=== PATIENT | male | born 1970 | race Hispanic/Latino ===

== ENCOUNTER 2016-07-26 01:39 | Emergency (ER) | payer OTHER ==
[~2016-07-26] VITALS: Ht 162.6 cm; Wt 100.0 kg
[~2016-07-26 01:39] MED LIST: CHOL100043 PO; IBUP800T28 PO; LISI-571 PO; METF500T4 PO; OMEP20CA11 PO; VALC TOP
[2016-07-26 01:40] VITALS: BP 185/121; PULSE 128; RESP 20; O2SAT 98
[2016-07-26 02:00] LABS: BASOPHILS % (AUTO) 0.4 % (0-3); EOSINOPHILS % (AUTO) 1.3 % (0-5); MONOCYTES % (AUTO) 8.2 % (4-12); Mean Corpuscular Hemoglobin 29.2 pg (27.0-35.0); Mean Corpuscular Volume 80.8 fL (81-100); NEUTROPHILS % (AUTO) 60.2 % (40-74); Platelet Count 309 bil/L (150-400)
[2016-07-26 02:21] VITALS: BP 172/117; PULSE 120; RESP 17; O2SAT 96
[2016-07-26 02:28] LABS: TROPONIN T 0.01 ug/L (0.0-0.011)
[2016-07-26 02:44] LABS: Magnesium 1.6 mg/dL (1.6-2.6)
--- NOTE | 2016-07-26 03:05 | ED.REPORT ---
HPI-General Illness Date of Service Jul 26, 2016 ED Provider: Aaron Boss MD History of Present Illness: Luis Tijerina is a 45 year old man with a PMH of DM2, HTN, and anxiety who presents with a 1 day history of elevated blood pressure and palpitations. He states that he has been under a great deal of stress recently and this has precipitated headaches, he underwent a circumcision last year and had some left over Vicodin from that procedure which he took this evening before taking his usual HS Citalopram. He states that shorlty after taking these medications he began to feel unwell, he measured his blood pressure and found it to be in excess of 180/120 which prompted him to present to the ED. He denies chest pain, SOB, MANUEL, orthopnea, diaphoresis, pain with deep breath, or acute anxiety. Nursing Notes Stated Complaint: HIGH BLOOD PRESSURE Chief Complaint: General Complaint Nursing Notes Reviewed: Yes Allergies: Coded Allergies: niacin (Verified Allergy, Severe, RASH, 12/25/13) Sulfa (Sulfonamide Antibiotics) (Verified Allergy, Unknown, hives, ) Scheduled Betamethasone Greta (Betamethasone Valerate) 60 Applic/15 Gm Cream 60 APPLIC TOP TID Cholecalciferol (Vitamin D3) (Vitamin D) 1,000 Unit Tablet 1,000 UNIT PO DAILY Lisinopril (Lisinopril) 5 Mg Tablet 5 MG PO DAILY Metformin (Metformin) 500 Mg Tablet 500 MG PO BID Omeprazole (Omeprazole) 20 Mg Capsule.dr 20 MG PO DAILY Scheduled PRN Ibuprofen (Ibuprofen) 800 Mg Tablet 800 MG PO Q8H PRN PRN For Pain General Time Seen by MD: 02:00 Chief Complaint Not feeling well Hx Obtained From: Patient Onset Occurred: 1 - 4 hours ago Symptom Duration: Since onset Severity: Current: No pain currently Severity: Maximum: No pain Recent Healthcare: No recent doctor visit Similar Sx Previous: No Past Medical History Smoking History Current Some Day Smoker Review of Systems Full Review of Systems Constitutional: Reports: Weakness - generalized Neurologic: Reports: Shaking Complete sys rev & neg: except as marked. Physical Exam Gen: A/O x3 pleasant anxious male in mild acute distress Neck: supple, full ROM, no lymphadenopathy HEENT: PERRL, EOMI, mucous membranes moist CV: Tachycardia with rate approx 120, regular rhythm, no murmurs rubs or gallops Resp: Lungs CTA BL, no wheezing rales or rhonchi Abdomen: Soft, non tender, no organomegally Extr: No cyanosis, clubbing or edema Neuro: CN 2-12 grossly intact, no focal neurologic deficit Vital Signs Vital Signs Date Time Temp Pulse Resp B/P Pulse Ox O2 Delivery O2 Flow Rate FiO2 07/26/16 03:37 91 21 163/108 95 Room Air 07/26/16 02:21 120 17 172/117 96 Room Air 07/26/16 01:40 36.7 128 20 185/121 98 Room Air Initial VS: Reviewed Interpretation & Diagnostics Lab Results Interpretation Result Diagram: 07/26/16 0153 07/26/16 0153 Test 07/26/16 01:53 White Blood Count 10.6th/mm3 (3.8-10.1) Red Blood Count 5.90mil/mm3 (4.40-5.80) Hemoglobin 17.2g/dL (13.8-17.2) Hematocrit 47.7% (41.0-50.0) Mean Corpuscular Volume 80.8fL (81-100) Mean Corpuscular Hemoglobin 29.2pg (27.0-35.0) Mean Corpuscular Hemoglobin Concent 36.1% (32.0-37.0) Red Cell Distribution Width 13.1% (12.3-15.4) Platelet Count 309bil/L (150-400) Neutrophils (%) (Auto) 60.2% (40-74) Lymphocytes (%) (Auto) 29.5% (14-46) Monocytes (%) (Auto) 8.2% (4-12) Eosinophils (%) (Auto) 1.3% (0-5) Basophils (%) (Auto) 0.4% (0-3) Sodium Level 138mEq/L (134-144) Potassium Level 3.6mEq/L (3.5-5.2) Chloride Level 98mEq/L (97-108) Carbon Dioxide Level 21mmol/L (18-29) Blood Urea Nitrogen 11mg/dL (6-24) Creatinine 0.70mg/dL (0.76-1.27) Estimat Glomerular Filtration Rate 130mL/min (>59) Glucose Level 245mg/dL (60-99) Calcium Level 9.2mg/dL (8.5-10.1) Magnesium Level 1.6mg/dL (1.6-2.6) Total Bilirubin 0.3mg/dL (0.0-1.2) Aspartate Amino Transf (AST/SGOT) 20U/L (0-50) Alanine Aminotransferase (ALT/SGPT) 40U/L (0-44) Alkaline Phosphatase 95U/L (25-150) Troponin T 0.010ug/L (0.0-0.011) Total Protein 7.2g/dL (6.4-8.4) Albumin 4.5g/dL (3.4-5.0) Re-Eval/Medical Decision Med Decision/Clinical Course Patient with reassuring laboratory, ECG, and imaging. He states that he feels much better following administration of Metoprolol and Clonidine. He states that he felt comfortable to go home. 45-year-old with a history of hypertension on advancing meds, and a prior history of anxiety and panic disorder. He presents tonight with high blood pressure and some vague feelings of unwellness, but without any evidence of hypertensive urgency or other end organ issue. His blood pressure measured manually is consistently lower than the machine pressures recorded, and when it is reading 120 diastolic, I consistently recorded 105 mm. After metoprolol and clonidine, he is comfortable, much improved, and stable for discharge home. Counseled Regarding: Diagnosis, Lab results, Need for follow-up, When/why to return to ED Discharge & Departure Shift Change Sign-Out Response to Therapy: Improved Primary Impression: HTN (hypertension) Hypertension type: essential hypertension Hypertension goal: unspecified goal Qualified Code: I10 - Essential (primary) hypertension Additional Impressions: Anxiety Sinus tachycardia Disposition: Home Discharge Condition All VS Reviewed: Yes Condition: Stable Patient Instructions: Chronic Hypertension (ED) Additional Instructions: Based upon our laboratory and clinical examination there does not appear to be anything greatly concerning going on. Your blood pressure and heart rate are both high, this is most likely due to the stress that you say you are currently experiencing. 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 If you begin to experience chest pain, shortness or breath particularly if this occurs with minimal exertion, pain radiating from your chest to your jaw, sweating, difficulty speaking, or changes in your vision or sensation please present to the ED for further evaluation. Referrals: Nona Hector PA-C (PCP) Attending Statement As attending of record for this patient, I conducted an independent history and physical exam, and concur with the resident documentation as above, and as amended. copies to: Nona Hector PA-C, David E DO Jul 26, 2016 02:23 Aaron Boss MD Jul 26, 2016 07:50
[2016-07-26 03:37] VITALS: BP 163/108; PULSE 91; RESP 21; O2SAT 95
--- NOTE | 2016-07-26 09:20 | DRSVH ---
PROCEDURE: X-RAY CHEST ONE VIEW, PORTABLE ([id number]) INDICATIONS: hypertensive/tachycardia TECHNIQUE: One view of the chest was acquired. COMPARISON: [facility], CR, CHEST 2VW, 07/25/2010, 17:33. FINDINGS: Surgical changes and devices: None. Lungs and pleura: No pleural effusions or pneumothorax. Lungs are clear. Mediastinum: Mediastinal contours appear normal. Heart size is normal. Bones and chest wall: No suspicious bony lesions. Overlying soft tissues appear unremarkable. IMPRESSION: No acute cardiopulmonary disease. Dictated by: Steve Brady [facility] Interpreted: Daisy Velasquez MD on 07/26/2016 at 9:19 Transcribed by: DELFINA on 07/26/2016 at 9:19 Approved by: Daisy Velasquez MD, PhD on 07/26/2016 at 17:00
== END 2016-07-26 03:37 | disposition home or self-care (01) ==
LOC: SED 01:39
DX: I10 Essential (primary) hypertension (principal); F41.9 Anxiety disorder, unspecified; R00.0 Tachycardia, unspecified; F17.200 Nicotine dependence, unspecified, uncomplicated; Z79.84 Long term (current) use of oral hypoglycemic drugs; Z88.2 Allergy status to sulfonamides; Z88.8 Allergy status to other drugs, medicaments and biological substances

== ENCOUNTER 2016-08-06 02:55 | Emergency (ER) | payer OTHER ==
[2016-08-06 03:10] VITALS: BP 148/100; PULSE 83; RESP 16; O2SAT 97
--- NOTE | 2016-08-06 03:15 | ED.REPORT ---
HPI-Stroke / CVA Aug 06, 2016 ED Provider: Kwadwo Angulo MD Patient is a 45 year old male with a history of Childress's palsy, diabetes mellitus , and hypertension who presents to the ED after he developed generalized weakness and dizziness just prior to arrival, with last known normal at midnight tonight. The patient states that he awoke from sleep to use the bathroom and became extremely dizzy. He tried to walk down the hallway but had to use the wall to keep himself upright. The patient does not think that he experienced actual weakness in his legs or but was just was unsteady on his feet. The patient then vomited 4x. His son states that when they encountered him he was having trouble finishing sentences. 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 Patient states that he also developed a headache between 12:30am and 1am this morning. The patient took Vicodin and Ibuprofen prior to sleep, improving his symptoms. However he now has a headache at the back of his head, which he describes as a pressure. He reports difficulty with his ears for several months, experiencing intermittent pain and abnormal pressures. Patient admits to seeing black spots in his vision , which he describes as "floaters". He denies diplopia or vision loss. His last known normal time was 3 hours and 15 minutes prior to arrival. Nursing Notes Stated Complaint: DIZZINESS/ VOMITING Chief Complaint: Stroke Symptoms Nursing Notes Reviewed: Yes Allergies: Coded Allergies: niacin (Verified Allergy, Severe, RASH, 12/25/13) Sulfa (Sulfonamide Antibiotics) (Verified Allergy, Unknown, hives, ) Scheduled Betamethasone Greta (Betamethasone Valerate) 60 Applic/15 Gm Cream 60 APPLIC TOP TID (Reported) Cholecalciferol (Vitamin D3) (Vitamin D) 1,000 Unit Tablet 1,000 UNIT PO DAILY ( Reported) Lisinopril (Lisinopril) 5 Mg Tablet 5 MG PO DAILY (Reported) Meclizine (Bonine) 25 Mg Tab.chew 25 MG PO BID Metformin (Metformin) 500 Mg Tablet 500 MG PO BID (Reported) Omeprazole (Omeprazole) 20 Mg Capsule.dr 20 MG PO DAILY (Reported) Scheduled PRN Ibuprofen (Ibuprofen) 800 Mg Tablet 800 MG PO Q8H PRN PRN For Pain (Reported) Meclizine (Bonine) 25 Mg Tab.chew 25 MG PO BID PRN PRN For Dizziness General Time Seen by Provider: 03:17 Chief Complaint Weakness, Dizziness Hx Obtained From: Patient Arrived By: Ambulance, Walk-in Time last known well 12am Sudden in Onset?: No Symptom Duration: Since onset Progression Since Onset: Gradually improving Location: : Head Quality: Painful Severity: Current: Moderate Severity: Maximum: Severe Context Related History: Reports: Childress's palsy Recent Healthcare: No recent doctor visit, No recent hospitalization Similar Sx Previous: No Risk Factors NIH Stroke Scale Level of Consciousness: Alert and responsive (0) Ask Month & Age: Both questions right (0) Open/Close Eyes/Hand Screen Stretcher: Performs both tasks (0) Horizontal EO Movements: None (0) Visual Blanco: No visual loss (0) Facial Palsy: Normal symmetry (0) (no new symptoms) Right Arm Motor Drift (10s): No drift 10 sec (0) Left Arm Motor Drift (10s): No drift 10 sec (0) Right Leg Motor Drift (5s): No drift 5 sec (0) Left Leg Motor Drift (5s): No drift 5 sec (0) Limb Ataxia FNF/Heel-Romero: No ataxia (0) Sensation (Arms/Legs/Face): No sensory loss (0) Language Aphasia: No aphasia, normal (0) Dysarthria: No dysarthria, normal (0) Extinction/Inattention: No exctinct/inattent (0) NIHSS Score: 0 Time NIHSS Performed: 03:49 Date NIHSS Performed: Aug 06, 2016 Past Medical History Past Medical History Childress's Palsy BPH Reports: Diabetes mellitus, Hypertension Past Surgical History Circumcision Smoking History Current Some Day Smoker Social History Other Social History: Good social support, Local resident Ambulatory Status Independent Review of Systems Eyes: Denies: Diplopia, Visual loss bilateral Ears / Nose / Throat: Reports: Earache bilateral GI: Reports: Vomiting Neurologic: Reports: Problem walking, Slurred speech, Weakness, Denies: Numbness Complete sys rev & neg: except as marked. Physical Exam Initial Vital Signs Vital Signs (First) Date Time Temp Pulse Resp B/P Pulse Ox O2 Delivery O2 Flow Rate FiO2 08/06/16 03:10 36.4 83 16 148/100 97 Room Air Initial VS: Reviewed, Vital signs abnormal Abdomen / GI: Soft, Non-tender Extremities: Vascular intact, Neuro intact Skin: Warm, Dry, No cyanosis Psychiatric: Mood/affect normal, Behavior normal, Normal thought content General/Constitutional: Awake, Alert, No acute distress Head / Eyes: Normocephalic, PERRL Neck: Supple, Full range of motion, No JVD Respiratory / Chest: Breath sounds NL, Breath sounds = bilat, No respiratory distress, No rales, No rhonchi, No wheezing Cardiovascular: Heart rate NL, Regular rhythm, Heart sounds NL, No murmurs Neurologic: Oriented X3, Speech NL, No motor deficits, No sensory deficits facial asymmetry due to Childress's palsy Interpretation & Diagnostics Lab Results Interpretation Result Diagram: 08/06/16 0322 08/06/16 0322 Test 08/06/16 03:22 White Blood Count 9.6th/mm3 (3.8-10.1) Red Blood Count 5.23mil/mm3 (4.40-5.80) Hemoglobin 15.7g/dL (13.8-17.2) Hematocrit 43.1% (41.0-50.0) Mean Corpuscular Volume 82.4fL (81-100) Mean Corpuscular Hemoglobin 30.0pg (27.0-35.0) Mean Corpuscular Hemoglobin Concent 36.4% (32.0-37.0) Red Cell Distribution Width 12.7% (12.3-15.4) Platelet Count 253bil/L (150-400) Neutrophils (%) (Auto) 44.7% (40-74) Lymphocytes (%) (Auto) 43.8% (14-46) Monocytes (%) (Auto) 8.5% (4-12) Eosinophils (%) (Auto) 2.1% (0-5) Basophils (%) (Auto) 0.4% (0-3) Prothrombin Time 9.8sec (8.1-12.5) Prothromb Time International Ratio 0.92ratio Activated Partial Thromboplast Time 24.3sec (22.8-33.0) Sodium Level 135mEq/L (134-144) Potassium Level 3.4mEq/L (3.5-5.2) Chloride Level 97mEq/L (97-108) Carbon Dioxide Level 19mmol/L (18-29) Blood Urea Nitrogen 14mg/dL (6-24) Creatinine 0.72mg/dL (0.76-1.27) Estimat Glomerular Filtration Rate 126mL/min (>59) Glucose Level 276mg/dL (60-99) Calcium Level 9.6mg/dL (8.5-10.1) Total Bilirubin 0.4mg/dL (0.0-1.2) Aspartate Amino Transf (AST/SGOT) 20U/L (0-50) Alanine Aminotransferase (ALT/SGPT) 34U/L (0-44) Alkaline Phosphatase 79U/L (25-150) Troponin T 0.010ug/L (0.0-0.011) Total Protein 6.8g/dL (6.4-8.4) Albumin 3.9g/dL (3.4-5.0) Hold Borrego Top Tube Received (Received) Lab Results Interpretation: Elevated blood glucose ECG Interpretation ECG Interpretation: Sinus rhythm, Rate 81 Time: 03:52 Interpreted by: ED physician Normal ECG Interpretation: No acute ischemic changes CT Head Interpretation CONCLUSION: Normal non-contrast CT scan of the head. Radiologist: Carroll Walters MD 08/06/2016 - 3:11:53 AM PDT Study: Head CT no contrast Interpretation / Wet Read by: Interpret - Radiologist, Discussed w radiologist Re-Eval/Medical Decision Med Decision/Clinical Course The patient presents as a code stroke. He has a pre-existing facial asymmetry secondary to Childress's palsy and this was assumed by the medics to be acute. He also was having trouble walking but does not think that there was actual weakness, only unsteadiness. There was some difficulty with speech but he had also just awakened, he was in considerable distress and was actively vomiting. The symptoms did not persist. He has been having trouble with inner ear infections and vertigo and has used meclizine in the past. He states this is just much more severe than anything he has experienced. His CT scan is negative. His last known normal time at the time of arrival in the emergency room was 3 hours and 15 minutes. He is diabetic. With the exception of his pre-existing problems he did not score on the NIH stroke scale. His CT scan is negative. His vertigo improved markedly with meclizine and he was able to ambulate unassisted. Labyrinthitis or other inner ear problems seems much more likely explanation of his symptoms in this situation, and I do not feel he meets criteria for TPA. Source of Hx: Old records Re-Evaluation/Progress : Time of Eval: 05:45 Patient Status: Condition improved Re-Evaluation/Progress Note: Patient is improved and is ready to be discharged home. Patient understands and agrees with the plan. Discharge instructions and follow-up discussed. All questions were addressed. Return to the ED warnings given. Counseled Regarding: Diagnosis, Lab results, Need for follow-up, When/why to return to ED Patient Discharge & Departure Impression: Primary Impression: Vertigo Additional Impression: Labyrinthitis Laterality: bilateral Qualified Code: H83.03 - Labyrinthitis, bilateral Disposition: Home Discharge Condition All VS Reviewed: Yes Condition: Stable Patient Instructions: Vertigo (ED) Additional Instructions: There is no evidence of stroke. Your CT scan is normal. Your dizziness is likely due to labyrinthitis, an inner ear infection. Meclizine 25 mg by mouth twice a day as needed for vertigo, #20 prescribed. Follow up with your regular doctor if you have recurrent symptoms. Do not drive and take care with walking until the vertigo goes away. Referrals: Nona Hector PA-C (PCP) Scribe Attestation Portions of this note were transcribed by Noreen Narayanan. I, Dr. Angulo personally performed the history, physical exam and medical decision-making; I reviewed and confirmed the accuracy of the information in the transcribed note. Signed by: Jeannette Treadwell, 08/06/2016 [id number] copies to: Nona Hector PA-C, Howard L MD Aug 06, 2016 03:15 Noreen Narayanan Aug 06, 2016 03:20
[2016-08-06 03:27] LABS: BASOPHILS % (AUTO) 0.4 % (0-3); EOSINOPHILS % (AUTO) 2.1 % (0-5); MONOCYTES % (AUTO) 8.5 % (4-12); Mean Corpuscular Volume 82.4 fL (81-100); NEUTROPHILS % (AUTO) 44.7 % (40-74); Platelet Count 253 bil/L (150-400)
[2016-08-06 03:42] LABS: INR 0.92 ratio
[2016-08-06 04:03] LABS: TROPONIN T 0.01 ug/L (0.0-0.011)
[2016-08-06 04:09] VITALS: BP 142/93; PULSE 71; RESP 20; O2SAT 98
[2016-08-06] MEDS ORDERED: MECL-114 PO ×2 (05:58→06:25)
[2016-08-06 06:26] VITALS: BP 142/93; PULSE 71; RESP 20; O2SAT 98
--- NOTE | 2016-08-06 08:15 | DRSVH ---
PROCEDURE: CT BRAIN (TPA) ([id number]) INDICATIONS: Stroke TECHNIQUE: Noncontrast 4.5 mm thick angled axial sections acquired from the foramen magnum to the vertex, with c oronal reformats. COMPARISON: None. FINDINGS: Image quality: Excellent. CSF spaces: Basal cisterns are patent. No extra-axial fluid collections. Ventricles are normal in size and shape. Brain: No midline shift. No intracranial masses or hemorrhage. Christie-white matter interface is norm al. Skull and face: Calvarium and visualized facial bones are intact, without suspicious lesions. Sinuses: Visualized sinuses and mastoids are clear. IMPRESSION: No acute intracranial abnormality. This study fulfills neurological imaging criteria for inclusion or exclusion of acute stroke therapie s based on available published neurological imaging guidelines. Dictated by: Bruno Brennan M.D. on 08/06/2016 at 8:12 Approved by: Bruno Brennan M.D. on 08/06/2016 at 8:13
== END 2016-08-06 05:58 | disposition home or self-care (01) ==
LOC: SED 02:55
DX: R42 Dizziness and giddiness (principal); H83.03 Labyrinthitis, bilateral; R51 Headache; E11.9 Type 2 diabetes mellitus without complications; G51.0 Bell's palsy; F17.200 Nicotine dependence, unspecified, uncomplicated; I10 Essential (primary) hypertension; Z88.2 Allergy status to sulfonamides; Z79.84 Long term (current) use of oral hypoglycemic drugs